=== PATIENT | male | born 1980 | race Caucasian/White ===

== ENCOUNTER 2019-09-17 11:16 | Emergency (ER) | payer SELFPAY ==
[~2019-09-17] VITALS: Ht 172.7 cm; Wt 68.0 kg
[2019-09-17 17:01] VITALS: BP 114/72; Ht 172.7 cm; Wt 68.0 kg
== END 2019-09-17 17:05 | disposition home or self-care (01) ==
LOC: ED 11:16
DX: U07.1 COVID-19 (principal); K02.9 Dental caries, unspecified
CPT/HCPCS: U0003-CS